=== PATIENT | female | born 1980 | race Caucasian/White ===

== ENCOUNTER 2022-11-22 13:43 | Emergency (ER) | payer MEDICAID, OTHER ==
[~2022-11-22] VITALS: Ht 152.4 cm; Wt 78.0 kg
[~2022-11-22 13:43] MED LIST: CITA40TA11 PO
[2022-11-22] MEDS ORDERED: BUPR-96 PO (13:52)
[2022-11-22] MEDS ORDERED: SERT100T PO (13:52)
--- NOTE | 2022-11-22 14:12 | NUR ---
JASPAL GRANADO at the bedside for MSE.
[2022-11-22 14:45] LABS: HEMATOCRIT 36.8 % (31.2-41.9); MEAN CORPUSCULAR HEMOGLOBIN 22.3 uug (24.7-32.8); MEAN CORPUSCULAR VOLUME 71.4 fL (75.5-95.3); PLATELET COUNT (AUTO) 398 K/uL (179-408)
[2022-11-22 14:55] LABS: CARBON DIOXIDE 24 mmol/L (21-32); CHLORIDE 103 mmol/L (98-107); CREATININE 0.8 mg/dL (0.6-1.3); GLUCOSE 141 mg/dL (74-106); UREA NITROGEN, BLOOD 11 mg/dL (7-18)
[2022-11-22 15:17] LABS: NEUTROPHILS % (MANUAL) 0 % (42-75)
[2022-11-22 15:25] LABS: *URINE HCG, QUAL NEGATIVE (NEGATIVE)
--- NOTE | 2022-11-22 16:31 | NUR ---
Pt signed consent for CTA, placed in the chart.
[2022-11-22] MEDS ORDERED: SWABABLE VALVE TRANSFER SET EA MC ONE (16:39)
[2022-11-22] MEDS ORDERED: IV NORMAL SALINE 250 ML IV ONE (16:39)
[2022-11-22] MEDS ORDERED: IOHEXOL 350 100 ML INFUS..BTL ONE (16:40)
--- NOTE | 2022-11-22 18:23 | NUR ---
IV removed. Catheter intact and site benign. Pressure and 4x4 gauze applied to site. No bleeding noted.
[2022-11-22 18:24] VITALS: BP 132/60
--- NOTE | 2022-11-22 18:25 | NUR ---
Patient discharged to home in stable condition. Written and verbal after care instructions given. Patient verbalizes understanding of instructions. Stressed follow up or return to ER for worsening s/s.
== END 2022-11-22 18:51 | disposition home or self-care (01) ==
LOC: ER 13:43
DX: R00.0 Tachycardia, unspecified (principal); M79.605 Pain in left leg; R07.89 Other chest pain; Z88.1 Allergy status to other antibiotic agents; Z79.899 Other long term (current) drug therapy
CPT/HCPCS: 99285; 93970; 71275; 71045; 80048; 84703; 83880; 85025; 85379; 85610; 85730; 84484; 36415; 93005; 73630; 85007; Q9967; 70030-TC; A4663

== ENCOUNTER 2025-01-25 22:59 | Emergency (ER) | payer OTHER ==
[~2025-01-25] VITALS: Ht 152.4 cm; Wt 68.9 kg
[~2025-01-25 22:59] MED LIST changes: +BUPR-96 PO; -CITA40TA11 PO; +SERT100T PO
[2025-01-25 23:05] VITALS: BP 122/87
[2025-01-25 23:40] LABS: *BILIRUBIN,URIN NEGATIVE (NEGATIVE); *CLARITY,URINE SLIGHTLY CLOUDY (CLEAR); *COLOR,URINE YELLOW (YELLOW); *KETONES,URINE TRACE (NEGATIVE); *PROTEIN,URINE 1+ (NEGATIVE); *UROBILINOGEN,URINE 2.0 E.U./dl (NORMAL); LEUKOCYTE ESTERASE ,URINE 1+ (NEGATIVE); NITRITE, URINE POSITIVE (NEGATIVE); UGLUCOSE NEGATIVE (NEGATIVE)
[2025-01-25 23:41] LABS: *BLOOD, URINE TRACE (NEGATIVE)
[2025-01-25 23:42] LABS: *URINE HCG, QUAL NEGATIVE (NEGATIVE); SQUAMOUS EPITHELIAL CELL,UR MODERATE /HPF (NONE SEEN)
[2025-01-25 23:51] LABS: PLATELET COUNT (AUTO) 350 K/uL (179-408); RED BLOOD CELL COUNT(AUTO) 5.14 MIL/uL (3.63-4.92); RED CELL DISTRIBUTION WIDTH 14.3 % (12.3-17.7); WHITE BLOOD COUNT (AUTO) 10.6 K/uL (3.8-11.8)
[2025-01-25 23:59] LABS: CREATININE 0.7 mg/dL (0.6-1.3); SODIUM SERUM 138.0 mmol/L (136-145); UREA NITROGEN, BLOOD 10.0 mg/dL (7-18)
[2025-01-26 00:05] LABS: ASPARTATE AMINOTRANSFERASE 11.0 U/L (15-37); TOTAL PROTEIN, SERUM 7.1 g/dL (6.4-8.2)
[2025-01-26] MEDS ORDERED: LIDOCAINE HCL 1% 20 ML VIAL ONE (00:24)
[2025-01-26] MEDS ORDERED: CEFTRIAXONE 1 G VIAL ONE (00:24)
[2025-01-26] MEDS: CEFTRIAXONE 1 G VIAL IM ONE (00:35)
[2025-01-26] MEDS ORDERED: CEFD300C3 PO (00:40)
[2025-01-26] MEDS ORDERED: ONDA4TAB11 PO (00:40)
[2025-01-26 01:00] VITALS: BP 111/82; TEMP 98.5; O2SAT 97
== END 2025-01-26 01:00 | disposition home or self-care (01) ==
LOC: ER 23:10
DX: N39.0 Urinary tract infection, site not specified (principal); N12 Tubulo-interstitial nephritis, not specified as acute or chronic; R11.2 Nausea with vomiting, unspecified; R14.0 Abdominal distension (gaseous); R53.1 Weakness; M79.662 Pain in left lower leg; M79.661 Pain in right lower leg; F12.90 Cannabis use, unspecified, uncomplicated; F17.290 Nicotine dependence, other tobacco product, uncomplicated; Z79.899 Other long term (current) drug therapy; Z88.1 Allergy status to other antibiotic agents; Z86.79 Personal history of other diseases of the circulatory system; Z87.09 Personal history of other diseases of the respiratory system; Z87.39 Personal history of other diseases of the musculoskeletal system and connective tissue
CPT/HCPCS: 99283; 80053; 81001; 84703; 83690; 85025; 87186; 87086; 87077; 36415; 96372; J0696; J3490; A4606; A4663